=== PATIENT | female | born 1995 | race American Indian/Alaskan Native ===

== ENCOUNTER 2016-07-17 17:11 | Emergency (ER) | payer OTHER | END 2016-07-17 21:49 | disposition left against medical advice (07) | LOC: ED 17:11 | DX: R22.1 Localized swelling, mass and lump, neck (principal); Z53.21 Procedure and treatment not carried out due to patient leaving prior to being seen by health care provider ==

== ENCOUNTER 2016-10-04 20:05 | Emergency (ER) | payer OTHER ==
[2016-10-04] MEDS ORDERED: MORPHINE IV ONE (20:24)
[2016-10-04] MEDS ORDERED: NACL 0.9% 1000 ML 1,000 ML IV ONE (20:24)
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
[2016-10-04 21:31] LABS: Basophils % (Auto) 0.2 % (0.0-1.8); Eosinophils % (Auto) 1.8 % (0.0-4.3); Hematocrit 40.2 % (30.3-42.9); Hemoglobin 13.1 gm/dl (10.1-14.3); Mean Corpuscular HGB Conc 33 % (30-34); Mean Corpuscular Hemoglobin 31 pg (28-32); Mean Corpuscular Volume 96 fl (79-97); Platelet Count 228 K/mm3 (140-440); Red Blood Count 4.18 M/mm3 (3.65-5.03); Red Cell Distribution Width 13.1 % (13.2-15.2); White Blood Count 18.4 K/mm3 (4.5-11.0)
[2016-10-04 21:43] LABS: Alanine Aminotransferase 13 units/L (7-56); Albumin/Globulin Ratio 1.2 %; Alkaline Phosphatase 54 units/L (35-129); Anion Gap 15 mmol/L; BUN/Creatinine Ratio 14.28; Blood Urea Nitrogen 10 mg/dL (7-17); Carbon Dioxide 23 mmol/L (22-30); Chloride 104.5 mmol/L (98-107); Glucose 97 mg/dL (65-100); Potassium 3.2 mmol/L (3.6-5.0); Sodium 139 mmol/L (137-145); Total Protein 7.4 g/dL (6.3-8.2)
[2016-10-04 21:46] LABS: INR 1.17 (0.87-1.13)
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
[2016-10-05] MEDS ORDERED: MORPHINE IV ONE (00:18)
[2016-10-05] MEDS ORDERED: XYLOCAINE 2% INFILTRATI ONE ×2 (00:33→03:16)
[2016-10-05] MEDS ORDERED: NACL 0.9% 1,000 ML IR ONE (00:33)
[2016-10-05] MEDS ORDERED: ceFAZolin 2 GM in NACL 0.9% 100 ML IV ONE (00:36)
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
[2016-10-05] MEDS ORDERED: NACL 0.9% IR ONE (03:16)
[2016-10-05 04:02] VITALS: BP 110/74
--- NOTE | 2016-10-05 07:07 | XRay Report ---
Single view chest: History: Chest pain. Findings: Normal cardiomediastinal silhouette. Trachea is midline. No consolidation, pneumothorax or pleural effusion. Impression: No acute cardiopulmonary findings.
--- NOTE | 2016-10-05 07:08 | XRay Report ---
Left hand 3 views: History: Left hand pain, laceration. Findings: No bony or articular abnormality. No fracture or dislocation or periosteal reaction. Impression: No evidence of acute fracture.
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
== END 2016-10-05 03:55 | disposition home or self-care (01) ==
LOC: ED 20:05
DX: S01.511A Laceration without foreign body of lip, initial encounter (principal); S09.90XA Unspecified injury of head, initial encounter; S00.10XA Contusion of unspecified eyelid and periocular area, initial encounter; S60.00XA Contusion of unspecified finger without damage to nail, initial encounter; F17.200 Nicotine dependence, unspecified, uncomplicated; Y08.89XA Assault by other specified means, initial encounter; Y93.9 Activity, unspecified; Y92.9 Unspecified place or not applicable; Y99.9 Unspecified external cause status
CPT/HCPCS: 12051; 36415; 70450; 70486; 71010; 72125; 73130; 74177; 80053; 84703; 85025; 85610; 86850; 86900; 86901; 93005; 93010; 96361; 96365; 96375; 96376; 99285; J0690; J2270; J7030; Q9967

== ENCOUNTER 2016-10-12 16:03 | Emergency (ER) | payer SELFPAY | END 2016-10-12 16:04 | disposition left against medical advice (07) | LOC: ED 16:03 | DX: Z48.02 Encounter for removal of sutures (principal); Z53.21 Procedure and treatment not carried out due to patient leaving prior to being seen by health care provider ==